=== PATIENT | male | born 1965 | race Two or more races ===

== ENCOUNTER 2021-05-20 03:05 | Inpatient (IN) | payer SELFPAY ==
[~2021-05-20] VITALS: Ht 182.9 cm; Wt 146.3 kg
[2021-05-20 03:57] LABS: Basophils # (auto) 0.1 10 ^3/uL (0-0.2); Basophils % (auto) 1.2 % (0.0-2.0); Eosinophils # (auto) 0.3 10 ^3/uL (0-0.8); Hematocrit 38.3 % (41.0-53.0); Hemoglobin 12.8 g/dL (13.5-17.5); Lymphocytes # (auto) 1.1 10 ^3/uL (0.4-5.4); Lymphocytes % (auto) 11.8 % (10.0-50.0); Mean Corpuscular Hemoglobin 28.7 pg (28.0-32.0); Mean Corpuscular Hgb Conc. 33.4 g/dL (32.0-36.0); Mean Corpuscular Volume 86.2 fL (80.0-100.0); Monocytes # (auto) 0.8 10 ^3/uL (0-1.3); Monocytes % (auto) 8.6 % (0.0-12.0); Neutrophils # (auto) 6.7 10 ^3/uL (1.6-8.6); Neutrophils % (auto) 75.4 % (37.0-80.0); Nucleated Red Blood Cells % 0.2 %; Red Blood Cells 4.45 10^6/uL (4.5-5.90); Red Cell Distribution Width 16.2 % (11.8-14.3); White Blood Cell 8.9 10^3/uL (4.4-10.8)
[2021-05-20 04:14] LABS: Albumin 2.4 g/dL (3.4-5.0); Anion Gap 8 (5-15); Blood Urea Nitrogen 19 mg/dL (7-18); Calcium 8.1 mg/dL (8.5-10.1); Carbon Dioxide 21 mmol/L (21-32); Chloride 108 mmol/L (98-107); Glucose 109 mg/dL (74-106); Potassium 3.6 mmol/L (3.5-5.1); Sodium 137 mmol/L (136-145)
[2021-05-20] MEDS ORDERED: OXYMETAZOLINE HCL 0.05 % NASAL SPRAY 15ML EACHNOSTRI ONE (04:15)
[2021-05-20 04:16] LABS: Alanine Aminotransferase 12 U/L (16-61); Aspartate Aminotransferase 17 U/L (15-37); BUN/Creatinine Ratio 17.1; GFR African American 89 mL/min; GFR Non-African American 73 mL/min
[2021-05-20 04:21] LABS: Alkaline Phosphatase 56 U/L (45-117); Bilirubin, Total 0.3 mg/dL (0.2-1.0); Total Protein 8.8 g/dL (6.4-8.2)
[2021-05-20] MEDS ORDERED: hydrALAZINE HCL 20 MG/ML VL IV ONE (05:00)
[2021-05-20 07:16] LABS: INR 1.06 (0.9-1.15)
[2021-05-20] MEDS ORDERED: LIDOCAINE 2% (LOCAL ANESTH.) PF 5ml SDV ONE (13:54)
[2021-05-20] MEDS ORDERED: cefTRIAXone SOD 1,000 MG VL IM ONE (14:00)
[2021-05-20] MEDS ORDERED: ACETAMINOPHEN 500 MG TAB PO PRN (18:45)
[2021-05-20] MEDS ORDERED: NITROGLYCERIN 0.4 MG SL TAB SL PRN (18:45)
[2021-05-20] MEDS ORDERED: ONDANSETRON HCL 4 MG/2 ML VIAL IV PRN (18:45)
[2021-05-20] MEDS ORDERED: hydrALAZINE HCL 20 MG/ML VL IV PRN (18:45)
[2021-05-20] MEDS ORDERED: MORPHINE SULFATE INJECTION 2 MG/ML SYRG IV PRN (18:45)
[2021-05-20 21:00] VITALS: BP 132/81
[2021-05-20 22:00] VITALS: BP 132/81
[2021-05-20] MEDS: METOPROLOL TARTRATE 25 MG TAB PO SCH (22:00)
[2021-05-20] MEDS: DOCUSATE SOD 100 MG CAP PO SCH (22:00)
[2021-05-20] MEDS: CLINDAMYCIN 300MG IV 50 ML IV SCH (23:28)
[2021-05-21 05:00] VITALS: BP 105/69
[2021-05-21] MEDS ORDERED: guaiFENesin-DM 100/10mg/5ml SYR PO PRN (06:30)
[2021-05-21 09:27] VITALS: BP 145/82
[2021-05-21] MEDS: CLINDAMYCIN 300MG IV 50 ML IV SCH ×3 (10:37→23:10)
[2021-05-21] MEDS: FAMOTIDINE 20 MG TAB PO SCH (10:37)
[2021-05-21] MEDS: DOCUSATE SOD 100 MG CAP PO SCH ×2 (10:38→23:10)
[2021-05-21] MEDS: LISINOPRIL 10 MG TAB PO SCH (10:39)
[2021-05-21] MEDS: cefTRIAXone 1GM/50ML D5W 50 ML IV SCH (10:40)
[2021-05-21] MEDS: METOPROLOL TARTRATE 25 MG TAB PO SCH ×2 (10:40→23:11)
[2021-05-21 12:44] VITALS: BP 133/75
[2021-05-21] MEDS ORDERED: NICOTINE 21MG/24 HR TOPICAL PATCH TD ONE (15:00)
[2021-05-21 16:48] VITALS: BP 127/75
[2021-05-21 16:49] LABS: Amphetamine Screen, Urine POSITIVE (NEGATIVE); Barbiturate Scree,Urine NEGATIVE (NEGATIVE); Benzodiazephine Screen, Urine NEGATIVE (NEGATIVE); Cannabinoid Screen, Urine NEGATIVE (NEGATIVE); Cocaine Screen, Urine NEGATIVE (NEGATIVE); Opiate Scree,Urine NEGATIVE (NEGATIVE); Phencyclidine Screen, Urine NEGATIVE (NEGATIVE)
[2021-05-21] MEDS: MORPHINE SULFATE INJECTION 2 MG/ML SYRG IV PRN (17:01)
[2021-05-21 17:04] LABS: Alcohol, Urine < 3.0 mg/dL (0-10)
[2021-05-21] MEDS: HYDROcodone-ACET 5/325MG TAB PO PRN (17:44)
[2021-05-21 20:00] VITALS: BP 133/75
[2021-05-21 22:25] VITALS: BP 162/94
[2021-05-22] MEDS: MORPHINE SULFATE INJECTION 2 MG/ML SYRG IV PRN (02:02)
[2021-05-22 05:16] VITALS: BP 153/92
[2021-05-22 05:31] LABS: Basophils # (auto) 0 10 ^3/uL (0-0.2); Basophils % (auto) 0.4 % (0.0-2.0); Eosinophils # (auto) 0.3 10 ^3/uL (0-0.8); Eosinophils % (auto) 2.5 % (0.0-7.0); Hematocrit 31.9 % (41.0-53.0); Hemoglobin 10.4 g/dL (13.5-17.5); Lymphocytes # (auto) 1.6 10 ^3/uL (0.4-5.4); Lymphocytes % (auto) 14.6 % (10.0-50.0); Mean Corpuscular Hemoglobin 28.4 pg (28.0-32.0); Mean Corpuscular Hgb Conc. 32.7 g/dL (32.0-36.0); Mean Corpuscular Volume 86.9 fL (80.0-100.0); Monocytes # (auto) 0.7 10 ^3/uL (0-1.3); Monocytes % (auto) 6.1 % (0.0-12.0); Neutrophils # (auto) 8.3 10 ^3/uL (1.6-8.6); Neutrophils % (auto) 76.4 % (37.0-80.0); Red Blood Cells 3.66 10^6/uL (4.5-5.90); Red Cell Distribution Width 15.8 % (11.8-14.3); White Blood Cell 10.9 10^3/uL (4.4-10.8)
[2021-05-22 05:57] LABS: Potassium 3.5 mmol/L (3.5-5.1)
[2021-05-22] MEDS: CLINDAMYCIN 300MG IV 50 ML IV SCH ×3 (06:01→22:40)
[2021-05-22 06:12] LABS: BUN/Creatinine Ratio 22.7; Calcium 8.3 mg/dL (8.5-10.1); Magnesium 2.6 mg/dL (1.6-2.6)
[2021-05-22] MEDS: FAMOTIDINE 20 MG TAB PO SCH (09:04)
[2021-05-22] MEDS: DOCUSATE SOD 100 MG CAP PO SCH ×2 (09:04→22:38)
[2021-05-22] MEDS: HYDROcodone-ACET 5/325MG TAB PO PRN ×3 (09:05→22:39)
[2021-05-22] MEDS: METOPROLOL TARTRATE 25 MG TAB PO SCH ×2 (09:06→22:39)
[2021-05-22] MEDS: LISINOPRIL 10 MG TAB PO SCH (09:06)
[2021-05-22] MEDS: NICOTINE 21MG/24 HR TOPICAL PATCH TD SCH (09:07)
[2021-05-22] MEDS: cefTRIAXone 1GM/50ML D5W 50 ML IV SCH (09:08)
[2021-05-22 09:45] VITALS: BP 162/98
[2021-05-22] MEDS ORDERED: CHOLECALCIFEROL (VITD3) 2,000 UNIT CAP/TAB PO ONE (12:00)
[2021-05-22 13:05] VITALS: BP 155/82
[2021-05-22 16:46] VITALS: BP 144/79
[2021-05-22 20:00] VITALS: BP 109/64
[2021-05-22 22:25] VITALS: BP 109/64
[2021-05-23 05:25] VITALS: BP 106/63
[2021-05-23 06:02] LABS: Basophils # (auto) 0.1 10 ^3/uL (0-0.2); Basophils % (auto) 0.6 % (0.0-2.0); Eosinophils # (auto) 0.3 10 ^3/uL (0-0.8); Eosinophils % (auto) 2.8 % (0.0-7.0); Hematocrit 28.8 % (41.0-53.0); Hemoglobin 9.6 g/dL (13.5-17.5); Lymphocytes # (auto) 1.8 10 ^3/uL (0.4-5.4); Lymphocytes % (auto) 15.6 % (10.0-50.0); Mean Corpuscular Hemoglobin 28.9 pg (28.0-32.0); Mean Corpuscular Hgb Conc. 33.4 g/dL (32.0-36.0); Mean Corpuscular Volume 86.6 fL (80.0-100.0); Monocytes # (auto) 0.9 10 ^3/uL (0-1.3); Monocytes % (auto) 7.4 % (0.0-12.0); Neutrophils # (auto) 8.7 10 ^3/uL (1.6-8.6); Neutrophils % (auto) 73.6 % (37.0-80.0); Red Blood Cells 3.32 10^6/uL (4.5-5.90); Red Cell Distribution Width 16.2 % (11.8-14.3); White Blood Cell 11.8 10^3/uL (4.4-10.8)
[2021-05-23 06:10] LABS: Calcium 8.2 mg/dL (8.5-10.1); Potassium 3.8 mmol/L (3.5-5.1)
[2021-05-23] MEDS: CLINDAMYCIN 300MG IV 50 ML IV SCH (06:10)
[2021-05-23 06:14] LABS: BUN/Creatinine Ratio 16.8
[2021-05-23 09:00] VITALS: BP 130/79
[2021-05-23] MEDS: DOCUSATE SOD 100 MG CAP PO SCH (09:54)
[2021-05-23] MEDS: cefTRIAXone 1GM/50ML D5W 50 ML IV SCH (09:54)
[2021-05-23] MEDS: METOPROLOL TARTRATE 25 MG TAB PO SCH (09:55)
[2021-05-23] MEDS: FAMOTIDINE 20 MG TAB PO SCH (09:55)
[2021-05-23] MEDS: NICOTINE 21MG/24 HR TOPICAL PATCH TD SCH (09:56)
[2021-05-23] MEDS: LISINOPRIL 10 MG TAB PO SCH (09:56)
[2021-05-23] MEDS ORDERED: CHOLECALCIFEROL (VITD3) 2,000 UNIT CAP/TAB PO SCH (10:00)
[2021-05-23] MEDS ORDERED: AMOX-277 PO (11:33)
[2021-05-23] MEDS ORDERED: NIC21P TOP (11:35)
[2021-05-23] MEDS ORDERED: MET25T PO (11:35)
[2021-05-23] MEDS ORDERED: CHOL20007 PO (11:35)
[2021-05-23] MEDS ORDERED: LISI20TA28 PO (11:35)
== END 2021-05-23 14:03 | disposition home or self-care (01) | DRG 151 ==
LOC: EDBD 03:05 → ER 03:05 → OVERFLOW 18:39 → WEST WING 21:02 → TELE-WESTW 05-21 19:25
PROVIDERS: ADMIT Nurse Practitioner Acute Care; ATTEND Internal Medicine
PROC: 2Y41X5Z Packing of Nasal Region using Packing Material (ICD-10-PCS; principal; 2021-05-21)
DX: R04.0 Epistaxis (principal); L03.115 Cellulitis of right lower limb; I50.32 Chronic diastolic (congestive) heart failure; L03.116 Cellulitis of left lower limb; Z68.41 Body mass index [BMI] 40.0-44.9, adult; E88.09 Other disorders of plasma-protein metabolism, not elsewhere classified; E55.9 Vitamin D deficiency, unspecified; D64.9 Anemia, unspecified; I11.0 Hypertensive heart disease with heart failure; J33.9 Nasal polyp, unspecified; F12.10 Cannabis abuse, uncomplicated; Z20.822 Contact with and (suspected) exposure to COVID-19; F15.10 Other stimulant abuse, uncomplicated; I87.2 Venous insufficiency (chronic) (peripheral); E66.01 Morbid (severe) obesity due to excess calories; F17.200 Nicotine dependence, unspecified, uncomplicated; Z71.6 Tobacco abuse counseling; Z71.51 Drug abuse counseling and surveillance of drug abuser
CPT/HCPCS: 30901; 36415; 71045; 73590; 80048; 80053; 80061; 80307; 82306; 83735; 83880; 84443; 84484; 85025; 85610; 85652; 86141; 87426; 93005; 93306; 93971; 96372; 96374; 97163; A4565; G0378; J0696; J2001; J2405; J3490